=== PATIENT | female | born 1940 | race Caucasian/White ===

== ENCOUNTER → 2016-07-24 | Day surgery (SDC) | payer OTHER ==
--- NOTE | 2016-07-21 08:34 | MH ---
cc: [facility] WRIGHT MD DATE OF ADMISSION: 07/24/2016 REASON FOR ADMISSION: This patient is a 75-year-old white female 3, para 3 who is being admitted to [facility] for evaluation of postmenopausal bleeding. HISTORY OF PRESENT ILLNESS: The patient is well-known to our practice and she was seen a month ago and had complaints of what she termed as heavy spotting and this started in December of last year. She has been using a light pad since that time. An ultrasound scan report that we sent her for showed that she had an increased endometrial thickening which was read out as approximately 16 mm. I saw her in the office on 07/20. At that time, I tried to perform an endometrial sampling but because of her age and cervical stenosis this could not be performed in the office; therefore, we advised her to proceed with D&C and hysteroscopy. PAST MEDICAL HISTORY: Her medical history is significant for: 1. History of hypertension. PAST SURGICAL HISTORY: Her surgical history does include several D&Cs but these were done twenty to thirty years ago. ALLERGIES: SHE HAS NO KNOWN ALLERGIES TO MEDICATIONS. FAMILY HISTORY: Her family history is significant for cardiovascular disease and hypertension. REVIEW OF SYSTEMS: Essentially noncontributory. PHYSICAL EXAMINATION: GENERAL: The patient was seen well-developed, well-nourished and in no acute distress. VITAL SIGNS: Blood pressure was 132/70, pulse of 70, respirations are 12. HEAD, EYES, EARS, NOSE, THROAT: Negative. CHEST: Clear to auscultation. CARDIOVASCULAR: Regular rate. ABDOMEN: Abdomen soft. Bowel sounds were positive. PELVIC: Examination revealed the uterus was normal in size. There were no adnexal masses palpable. EXTREMITIES: No cyanosis, clubbing or edema. NEUROPSYCHIATRIC: The patient is oriented x3 and showed no gross neurocranial deficit. IMPRESSION ON ADMISSION: 1. Postmenopausal bleeding. 2. Increased endometrial thickening. PLAN: D&C and hysteroscopy. MD KEYLA LockhartG/JCCherelle /3:28 PM /8:22 AM
[~2016-07-24] VITALS: Ht 162.6 cm; Wt 78.6 kg
[~2016-07-24] MED LIST: *ENALAPRILAT 1.25 MG/ML VIAL PERIprocedural Use ONLY ONE; ACETAMINOPHEN 1000 MG/100 ML VIAL IV ONE; ASCO500C PO; CALC600T25; CHLORHEXIDINE GLUCONATE 2 % 1 PACK (2 CLOTHS) TOPICAL PRN; COQ1200C; DEXAMETHASONE SOD PHOS 4 MG/ML VIAL ONE; ESSE250T; FAMOTIDINE 20 MG/2 ML VIAL ONE; INSULIN HUMAN REGULAR 1,000 UNITS/10 ML VIAL SQ PRN; KRIL1CAP11; LACTATED RINGER'S 1000 ML IV PRN; METOPROLOL TARTRATE 25 MG TAB PO PRN; MIDAZOLAM HCL 2 MG/2 ML VIAL ONE; ONDANSETRON HCL 4 MG/2 ML VIAL IV PUSH ONE; OXYTOCIN 10 UNIT/ML AMP ONE; POVIDONE IODINE 5% (ANTISEPSIS KIT) 4 APPLICATIONS EACH NARE PRN; PROPOFOL 200 MG/20 ML AMP IV ONE; REDCAP2; SODIUM CHLORID 0.9% 500 ML IV PRN; SODIUM CHLORIDE 0.9% 20 ML VIAL ONE; TRIA37.5 PO; VITA200013; ceFAZolin 2 GM PREMIX 50 ML IV SCH; ePHEDrine/NS 25 MG/5 ML SYR IV ONE; fentaNYL CITRATE 250 MCG/5 ML AMP ONE
[2016-07-24 13:38] VITALS: BP 196/95; PULSE 54; RESP 18; TEMP 97.5; O2SAT 98
--- NOTE | 2016-07-24 14:34 | EKG ---
Date Performed: 07/24/2016 Time Performed: 13:54:57 PTAGE: 75 years EKG: SINUS BRADYCARDIA BORDERLINE LEFT AXIS DEVIATION VOLTAGE CRITERIA FOR LVH ABNORMAL ECG NO S IGNIFICANT CHANGE FROM PRIOR ELECTROCARDIOGRAM. PREVIOUS TRACING : 07/17/2005 16.37 DOCTOR: Cody Call Interpretating Date/Time 07/24/2016 14:32:52
[2016-07-24 18:15] VITALS: BP 174/77; PULSE 52; RESP 16; TEMP 97.5; O2SAT 98
--- NOTE | 2016-07-26 09:01 | MP ---
cc: DAYTON US MD DATE OF SURGERY 07/24/2016 PREOPERATIVE DIAGNOSIS Endometrial hyperplasia POSTOPERATIVE DIAGNOSIS Endometrial polyps OPERATION Hysteroscopy and dilation and curettage SURGEON Dayton Us MD ANESTHESIA General ESTIMATED BLOOD LOSS Minimal COMPLICATIONS None FINDINGS Consistent with endometrial polyps. PROCEDURE The patient was prepped and draped in the dorsolithotomy position. A weighted speculum was placed in the posterior vaginal vault and the anterior lip of the cervix grasped with a single toothed tenaculum. The cervix was dilated up using Benjamín dilators and then a hysteroscope was then inserted in the endometrial cavity. The cavity appeared somewhat enlarged and there appeared to be findings consistent with endometrial polyps. Next, a sharp curetting instrument was entered in the endometrial cavity. Curettings were then performed and sent to pathology. After good hemostasis was noted, the hysteroscope was then reinserted and the majority of the polyps were removed and the hysteroscope was then removed as was the tenaculum and speculum and the patient returned to the Recovery Room in stable condition. Dayton Us MD [email or web address]/[email or web address] /5:09 PM /8:59 AM
== END | disposition home or self-care (01) ==
LOC: HSDC 12:56
PROVIDERS: ATTEND Obstetrics & Gynecology
DX: N84.0 Polyp of corpus uteri (principal); N95.0 Postmenopausal bleeding; I10 Essential (primary) hypertension
CPT/HCPCS: 00952; 58558; 88305; 93005; J0131; J0690; J1100; J2250; J2405; J3010; J7120; J2590